=== PATIENT | male | born 1985 | race African-American/Black ===

== ENCOUNTER 2016-08-31 19:35 | Emergency (ER) | payer OTHER ==
--- NOTE | 2016-08-31 19:43 | PDOC ---
History of Present Illness - General Chief Complaint: Nausea/Vomiting Stated Complaint: N/V/D/ Time Seen by Provider: 08/31/16 19:41 History Source: Patient Exam Limitations: No Limitations - History of Present Illness Initial Comments: 08/31/16 20:52 This is a 31-year-old male who comes in complaining of one week of intermittent diarrhea. Patient said he has been taking Imodium intermittently with some relief of his symptoms area patient said his last episode of diarrhea was today. And only had 1 episode. Patient said that symptoms began 1 week ago after eating some chicken that he thinks may have been contaminated. Patient denies any fevers or chills. Patient said he is also had some intermittent nausea and vomiting. Patient last vomited yesterday as well. Patient said he is able to eat and drink but intermittently feels nauseous and vomits and has intermittent diarrhea. Patient denies any chest pain, abdominal pain, dizziness lightheadedness or any other complaints. PAST MEDICAL HISTORY: no significant history PAST SURGICAL HISTORY: no significant history FAMILY HISTORY: no pertinant history SOCIAL HISTORY: Pt lives with family and is employed. MEDICATIONS: reviewed ALLERGIES: As per nursing notes Review of Systems General: No fevers or chills, no weakness, no weight loss HEENT: No change in vision. No sore throat,. No ear pain CardioVascular: No chest pain or shortness of breath Respiratory:No cough, or wheezing. Gastrointestinal:+ H/O of nausea, vomiting, diarrhea Genitourinary: No dysuria, hematuria, or frequency Musculoskeletal: No joint or muscle pain or swelling Neurologic: No headache, vertigo, dizziness or loss of consciousness Psychiatric: nor depression Skin: No rashes or easy bruising Endocrine: no increased thirst or abnormal weight change Allergic: no skin or latex allergy All other systems reviewed and normal Exam: General: Well-nourished well-developed individual, no acute distress HEENT: Throat: Normal, tonsils normal, no erythema or exudate Neck: Supple, no meningeal signs, no lymphadenopathy Eyes::Pupils equal reactive and round, extraocular motion intact Chest: Nontender to palpation Cardiac: S1-S2 normal, regular rate and rhythm, no murmurs rubs or gallops Respiratory: Lungs clear to auscultation bilateral Abdomen: Soft, nondistended, normal bowel sounds, nontender to palpation diffusely Extremities: Warm, dry, no cyanosis, clubbing, or edema Skin: No rashes Neuro: Alert and oriented x3, nonfocal exam, grossly intact, normal gait Psych: Normal mood and affect 08/31/16 20:56 Assessment and plan: This is a 31-year-old male with history of one week of intermittent nausea vomiting and diarrhea. Patient however is able to tolerate by mouth's. Patient had a workup here in the emergency room that included a normal white count and no left shift and normal chemistries. Patient's exam was also normal. Patient received 1 L of fluid and some anti-a emetics. Patient feels better and was discharged home. Past History - Past Medical History Allergies/Adverse Reactions: Allergies Allergy/AdvReac Type Severity Reaction Status Date / Time No Known Allergies Allergy Verified 01/03/16 21:48 Home Medications: Ambulatory Orders NK [No Known Home Medication] 08/31/16 - Psycho/Social/Smoking Cessation Hx Anxiety: No Suicidal Ideation: No Smoking History: Never smoked Have you smoked in the past 12 months: No Hx Alcohol Use: No Drug/Substance Use Hx: No Substance Use Type: None *Physical Exam - Vital Signs Last Vital Signs Temp Pulse Resp BP Pulse Ox 97.9 F 92 H 18 131/81 98 08/31/16 19:41 08/31/16 19:41 08/31/16 19:41 08/31/16 19:41 08/31/16 19:41 ED Treatment Course - LABORATORY CBC & Chemistry Diagram: 08/31/16 19:59 08/31/16 19:59 *DC/Admit/Observation/Transfer Diagnosis at time of Disposition: Nausea, vomiting, and diarrhea - Discharge Dispostion Disposition: HOME Condition at time of disposition: Stable Admit: No - Referrals Referrals: Angeli Villasenor MD [Staff Physician] - - Patient Instructions Printed Discharge Instructions: DI for Diarrhea and Traveler's Diarrhea -- Adult, DI for Vomiting -- Adult Additional Instructions: As long as you're having vomiting try to adhere to the brat diet bananas, rice, applesauce and toast. For the diarrhea he you can continue taking the Imodium as directed on the bottle. Follow-up with Dr. Mcadams. Return to the emergency department immediately with ANY new, persistent or worsening symptoms. Continue any medications as previously prescribed by your physician. You should follow up with your primary doctor as soon as possible regarding today's emergency department visit. . Please make sure your doctor reviews the results of your emergency evaluation. Thank you for coming to the Emergency Department today for your care. It was a pleasure to see you today. Please note that your evaluation is INCOMPLETE until you follow-up with your doctor.
[2016-08-31] MEDS ORDERED: ONDANSETRON 4 MG/2 ML VIAL IVPB ONE (19:44)
[2016-08-31] MEDS ORDERED: SODIUM CHLORIDE 1,000 ML IV ONE (19:44)
[2016-08-31] MEDS ORDERED: ONDANSETRON 4 MG/2 ML VIAL ONE (19:47)
[2016-08-31 20:17] VITALS: BP 131/81; PULSE 92; TEMP 97.9; BMI 34.7
[2016-08-31 20:19] LABS: BASOPHIL 0.9 % (0-2.0); EOSINOPHIL 0.6 % (0-4.5); MCH 27.2 pg (25.7-33.7); MCHC 33.7 g/dl (32.0-35.9); MEAN CELL VOLUME 80.7 fl (80-96); NEUTROPHILS 54.5 % (42.8-82.8); PLATELET COUNT 261 K/MM3 (134-434); RDW 12.9 % (11.9-15.9); WHITE BLOOD COUNT 6.7 K/mm3 (4.0-10.8)
[2016-08-31 20:38] LABS: ALBUMIN 4.1 g/dl (3.5-5.0); ALK PHOS 39 U/L (32-92); ANION GAP 8 (8-16); BILIRUBIN,TOTAL 0.7 mg/dl (0.2-1.0); CALCIUM 9.4 mg/dl (8.4-10.2); CO2 24 mmol/L (22-28); CREATININE 1.2 mg/dl (0.6-1.3); GLUCOSE,RANDOM 99 mg/dl (74-106); SGOT/AST 24 U/L (10-42); SGPT/ALT 27 U/L (10-40)
== END 2016-08-31 21:20 | disposition home or self-care (01) ==
LOC: FER 19:35
PROC: 3E033GC Introduction of Other Therapeutic Substance into Peripheral Vein, Percutaneous Approach (ICD-10-PCS; principal; 2016-08-31)
PROC: 3E0337Z Introduction of Electrolytic and Water Balance Substance into Peripheral Vein, Percutaneous Approach (ICD-10-PCS; 2016-08-31)
DX: R11.2 Nausea with vomiting, unspecified (principal); R19.7 Diarrhea, unspecified
CPT/HCPCS: 36415; 80053; 85025; 99282-25

== ENCOUNTER 2018-11-16 23:19 | Emergency (ER) | payer OTHER ==
[2018-11-16 23:31] VITALS: BP 145/91; PULSE 85; TEMP 98.1; BMI 32.3
--- NOTE | 2018-11-17 03:12 | PDOC ---
Documentation entered by Peace Ortiz SCRIBE, acting as scribe for Cyndi Flores MD. Cyndi Flores MD: This documentation has been prepared by the Diana forbes Xhesika, SCRIBE, under my direction and personally reviewed by me in its entirety. I confirm that the documentation accurately reflects all work, treatment, procedures, and medical decision making performed by me. History of Present Illness - General Chief Complaint: Edema Stated Complaint: B/L FEET SWELLING Time Seen by Provider: 11/16/18 23:23 History Source: Patient Exam Limitations: No Limitations - History of Present Illness Initial Comments: 11/17/18 00:06 The patient is a 33 year old male with a significant PMH of insomnia, anxiety and depression who presents to the emergency department with 4 days of b/l LE edema, pain and tenderness. The patient states he was in [facility] for a week and returned home Saturday. When he returned home he was not able to put his socks or shoes on. Patient states he tried resting his legs (took 4 naps today) and soaking them in Epsom salt, with no relief of symptoms. Patient states he endorses chronic calf pain. Patient states he normally cooks his meals, however , since he was in [facility], he endorsed a change in his diet. The patient denies any injuries or trauma. The patient denies chest pain, shortness of breath, headache and dizziness. Denies fever, chills, cough, nausea, vomiting, diarrhea and constipation. Denies dysuria, frequency, urgency and hematuria. Allergies: NKDA Past History - Past Medical History Allergies/Adverse Reactions: Allergies Allergy/AdvReac Type Severity Reaction Status Date / Time No Known Allergies Allergy Verified 10/14/17 16:20 Home Medications: Ambulatory Orders Melatonin 10 mg PO PRN PRN 11/16/18 COPD: No Psychiatric Problems: Yes (DEPRESSION/ANXIETY) - Suicide/Smoking/Psychosocial Hx Smoking History: Never smoked Have you smoked in the past 12 months: No Hx Alcohol Use: No Drug/Substance Use Hx: No Substance Use Type: None Review of Systems - Review of Systems Able to Perform ROS?: Yes Comments:: 11/17/18 00:07 GENERAL/CONSTITUTIONAL: No fever or chills. No weakness. HEAD, EYES, EARS, NOSE AND THROAT: No change in vision. No ear pain or discharge. No sore throat. CARDIOVASCULAR: No chest pain or shortness of breath. RESPIRATORY: No cough, wheezing, or hemoptysis. GASTROINTESTINAL: No nausea, vomiting, diarrhea or constipation. GENITOURINARY: No dysuria, frequency, or change in urination. MUSCULOSKELETAL: (+) b/l LE edema, pain and tenderness. No neck or back pain. SKIN: No rash NEUROLOGIC: No headache, vertigo, loss of consciousness, or change in strength/ sensation. ENDOCRINE: No increased thirst. No abnormal weight change. HEMATOLOGIC/LYMPHATIC: No anemia, easy bleeding, or history of blood clots. ALLERGIC/IMMUNOLOGIC: No hives or skin allergy. *Physical Exam - Vital Signs Last Vital Signs Temp Pulse Resp BP Pulse Ox 98.1 F 85 16 145/91 99 11/16/18 23:24 11/16/18 23:24 11/16/18 23:24 11/16/18 23:24 11/16/18 23:24 - Physical Exam Comments: 11/17/18 00:08 GENERAL: Awake, alert, and fully oriented, in no acute distress HEAD: No signs of trauma EYES: PERRLA, EOMI, sclera anicteric, conjunctiva clear ENT: Auricles normal inspection, hearing grossly normal, nares patent, oropharynx clear without exudates. Moist mucosa NECK: Normal ROM, supple, no lymphadenopathy, JVD, or masses LUNGS: Breath sounds equal, clear to auscultation bilaterally. No wheezes, and no crackles HEART: Regular rate and rhythm, normal S1 and S2, no murmurs, rubs or gallops ABDOMEN: Soft, nontender, normoactive bowel sounds. No guarding, no rebound. No masses EXTREMITIES: Normal range of motion, no edema. No clubbing or cyanosis. No cords. (+) 1+ pitting edema to knee of R side. (+) 2+ pitting edema to knee of L side. (+) Area of tenderness to popliteal region. No other deformities. NEUROLOGICAL: Cranial nerves II through XII grossly intact. Normal speech, normal gait SKIN: Warm, Dry, normal turgor, no rashes or lesions noted. ED Treatment Course - RADIOLOGY Radiology Studies Ordered: Category Date Time Status DUPLEX VASCUL US-2LEGS [US] Stat Ultrasound 11/17/18 00:19 Taken Medical Decision Making - Medical Decision Making As noted above, this 33-year-old man presents with bilateral lower extremity edema (left greater than right)for the last several days. The patient had recently (2 days ago) returned from [place] for [place]. He had noted the edema starting while he was on vacation there. He has mild discomfort in the left popliteal region but no other significant pain. No history of trauma. Has no history of thromboembolic disease. He describes intermittent swelling and discomfort in his legs for several years. He has mild ankle swelling bilaterally, usually related to diet according to the patient (he believes is related to his salt intake). He has no known history of venous insufficiency although he has never been evaluated by vascular surgeon. No history of varicose veins either the patient himself or in his family. Exam as noted. Because the patient has recently traveled and may have been somewhat more sedentary during the flight and perhaps during his vacation, DVT must be considered and bilateral Doppler duplex vascular studies performed. Preliminary interpretation by Imaging environmental engineering professor: No evidence of DVT. The 2 other most common reasons for peripheral edema discussed with the patient : Congestive heart failure and vascular insufficiency. He has no known history of cardiac disease and denies shortness of breath, cough, chest pain. With his history of intermittent mild lower extremity edema, he may have venous insufficiency. Further workup can be done as an outpatient. Meanwhile, the patient should elevate his legs as much as possible. If, in the past, he has had less edema with dietary manipulation (such as strict low-sodium diet), he should follow that limited diet. He should plan on finding a PMD . He was offered a medical referral within the [facility] system but he stated that he much preferred having a doctor close to either where he lives or where he works( .patient lives in [place] and works in the [place]) He should return to the ER if he has persistent, severe leg edema, shortness of breath, cough or chest pain. *DC/Admit/Observation/Transfer Diagnosis at time of Disposition: Bilateral leg edema - Discharge Dispostion Disposition: HOME Condition at time of disposition: Stable - Referrals - Patient Instructions Printed Discharge Instructions: DI for Peripheral Edema -- Bilateral Additional Instructions: Continue leg elevation as much as possible Continue modification of diet, limiting sodium Follow-up with physician in your area within the next 5 days Return to ER if you have worsening swelling/pain or develop shortness of breath/ chest pain - Post Discharge Activity
== END 2018-11-17 01:52 | disposition home or self-care (01) ==
LOC: FER 23:19
DX: M79.89 Other specified soft tissue disorders (principal)
CPT/HCPCS: 93970-TC; 99281-25